=== PATIENT | female | born 1995 | race African-American/Black ===

== ENCOUNTER 2018-07-09 13:18 | Emergency (ER) | payer MEDICAID ==
[~2018-07-09] VITALS: Ht 154.9 cm; Wt 70.3 kg
[2018-07-09 13:23] VITALS: BP_SYST 131
--- NOTE | 2018-07-09 13:30 | NUR ---
Pt placed to ER bed 04, report given to Ravi.
--- NOTE | 2018-07-09 13:33 | NUR ---
Pt presents to ER c/o rash to hands and lower extremities also c/o asthma. Pt reports rash started approx 2 weeks ago. Pt denies any pain, denies sob. Pt in no acute respiratory distress, speaking full sentences, AOX4, ambulatory.
--- NOTE | 2018-07-09 13:34 | NUR ---
TERRELL Pennington at bedside examining pt.
[2018-07-09 13:50] VITALS: BP_SYST 131
--- NOTE | 2018-07-09 13:50 | NUR ---
Patient given written and verbal discharge instructions and verbalizes understanding. ER MD discussed with patient the results and treatment provided. Patient in stable condition. ID arm band removed. Rx of Betamethasone given. Patient educated on pain management and to follow up with PMD. Pain Scale 0/10. Opportunity for questions provided and answered. Medication side effect fact sheet provided.
== END 2018-07-09 13:50 | disposition home or self-care (01) ==
LOC: SED 13:18
DX: L30.9 Dermatitis, unspecified (principal); J45.909 Unspecified asthma, uncomplicated; R03.0 Elevated blood-pressure reading, without diagnosis of hypertension
CPT/HCPCS: 99283

== ENCOUNTER 2018-08-19 21:01 | Emergency (ER) | payer MEDICAID ==
[~2018-08-19] VITALS: Ht 154.9 cm; Wt 72.6 kg
[2018-08-19 21:07] VITALS: BP_SYST 126
[2018-08-19] MEDS ORDERED: KETOROLAC TROMETHAMINE 60 MG/2 ML VIAL IM ONE (21:30)
[2018-08-19 21:56] LABS: BILIRUBIN,URINE NEGATIVE (NEGATIVE); BLOOD, URINE NEGATIVE (NEGATIVE); CLARITY/URINE CLEAR (CLEAR); COLOR,URINE YELLOW (YELLOW); GLUCOSE,URINE NEGATIVE (NEGATIVE); KETONES,URINE NEGATIVE (NEGATIVE); LEUKOCYTE ESTERASE ,URINE NEGATIVE (NEGATIVE); NITRITE, URINE NEGATIVE (NEGATIVE); PROTEIN URINE NEGATIVE (NEGATIVE); UROBILINOGEN,URINE 0.2 (0.2-1.0)
[2018-08-19 22:25] VITALS: BP_SYST 122
== END 2018-08-19 22:25 | disposition home or self-care (01) ==
LOC: SED 21:01
DX: M54.6 Pain in thoracic spine (principal); J45.909 Unspecified asthma, uncomplicated; R03.0 Elevated blood-pressure reading, without diagnosis of hypertension
CPT/HCPCS: 81003; 96372; 99283; J1885